=== PATIENT | male | born 1990 ===

== ENCOUNTER 2017-06-10 22:18 | Emergency (ER) | payer OTHER ==
[2017-06-10] MEDS ORDERED: LIDOCAINE HCL 1% MPF SOL ONE (22:21)
[2017-06-10] MEDS ORDERED: BACITRACIN 500 U/GM OIN TOP ONE (23:25)
[2017-06-11 02:21] VITALS: RESP 16; TEMP 98.8
[2017-06-11 02:36] VITALS: BP 134/88; PULSE 102; O2SAT 98
[2017-06-11] MEDS ORDERED: BACITRACIN 500 U/GM OIN TOP ONE (23:00)
[2017-06-11] MEDS ORDERED: LIDOCAINE HCL 1% MDV SOL SC ONE (23:00)
== END 2017-06-10 23:40 | disposition home or self-care (01) | DRG 125 ==
LOC: ED 22:18
DX: S01.112A Laceration without foreign body of left eyelid and periocular area, initial encounter (principal); F10.129 Alcohol abuse with intoxication, unspecified; W19.XXXA Unspecified fall, initial encounter
CPT/HCPCS: 12011; 99283; A6402; A9270-GY; J2001

== ENCOUNTER 2018-10-17 00:03 | Emergency (ER) | payer OTHER ==
[2018-10-17 00:10] VITALS: RESP 20; TEMP 97.3
[2018-10-17 01:31] LABS: ALBUMIN 3.8 gm/dl (3.4-5.0); BILIRUBIN,DIRECT 0.2 mg/dl (0.0-0.2); BILIRUBIN,TOTAL 0.8 mg/dl (0.2-1.0); CALCIUM 8.4 mg/dl (8.5-10.1); CARBON DIOXIDE 24.8 mEq/L (21-32); CREATININE 0.75 mg/dl (0.80-1.30); POTASSIUM 3.3 mMol/L (3.5-5.1)
[2018-10-17 01:33] LABS: BASOPHILS % (AUTO) 1 % (0-3); EOSINOPHILS % (AUTO) 2 % (0-9); HEMATOCRIT 41 % (39-53); HEMOGLOBIN 14.5 gm/dl (13.5-17.7); LYMPHOCYTES % (AUTO) 15.4 % (10-50); MEAN CORPUSCULAR HEMOGLOBIN 31.5 pg (27.0-32.0); MEAN CORPUSCULAR HGB CONC 35.5 gm/dl (32.0-36.0); MEAN CORPUSCULAR VOLUME 89 fL (80-100); MONOCYTES % (AUTO) 8.4 % (0-12); NEUTROPHILS % (AUTO) 72.7 % (37-80)
[2018-10-17 01:36] LABS: ALCOHOL 0.288 gm/dl (0.000-0.08)
[2018-10-17 01:37] LABS: AMPHETAMINES NEGATIVE (NEGATIVE); BARBITUATES NEGATIVE (NEGATIVE); BENZODIAZEPINES NEGATIVE (NEGATIVE); CANNABINOL(THC) POSITIVE (NEGATIVE); COCAINE(COC) NEGATIVE (NEGATIVE); METHADONE NEGATIVE (NEGATIVE); METHAMPHETAMINES NEGATIVE (NEGATIVE); OPIATES(OPI) NEGATIVE (NEGATIVE); OXYCODONE(OXY) NEGATIVE (NEGATIVE); PROPOXYPHENE(PPX) NEGATIVE (NEGATIVE); TRICYCLIC ANTIDEPRESSANTS NEGATIVE (NEGATIVE)
[2018-10-17 02:55] VITALS: BP 142/102; PULSE 102; O2SAT 97
== END 2018-10-17 03:13 | disposition short-term general hospital (02) | DRG 159 ==
LOC: ED 00:03
DX: S02.641B Fracture of ramus of right mandible, initial encounter for open fracture (principal); S02.69XA Fracture of mandible of other specified site, initial encounter for closed fracture; S02.69XB Fracture of mandible of other specified site, initial encounter for open fracture; S02.2XXA Fracture of nasal bones, initial encounter for closed fracture; Y04.2XXA Assault by strike against or bumped into by another person, initial encounter; F10.129 Alcohol abuse with intoxication, unspecified; Y90.8 Blood alcohol level of 240 mg/100 ml or more; R51 Headache
CPT/HCPCS: 36415; 70450; 70486; 80048; 80076; 80305; 80307; 83735; 85025; 99285; 99291; 99292